=== PATIENT | female | born 1985 | race Caucasian/White ===

== ENCOUNTER 2016-10-21 18:50 | Emergency (ER) | payer OTHER ==
[~2016-10-21] VITALS: Ht 157.5 cm; Wt 81.8 kg
[2016-10-21] MEDS ORDERED: IBUPROFEN 800 MG TABLET PO ONE (22:00)
[2016-10-21 22:22] VITALS: BP 138/87
== END 2016-10-21 22:27 | disposition home or self-care (01) ==
LOC: EMS 18:54
DX: S60.021A Contusion of right index finger without damage to nail, initial encounter (principal); W51.XXXA Accidental striking against or bumped into by another person, initial encounter; Y93.89 Activity, other specified; Y92.89 Other specified places as the place of occurrence of the external cause; Y99.0 Civilian activity done for income or pay
CPT/HCPCS: 99284